=== PATIENT | female | born 1990 | race Caucasian/White ===

== ENCOUNTER → 2021-06-05 | Emergency (ER) | payer OTHER ==
[2021-06-05 21:11] LABS: BASOPHIL 0.5 % (0-2); EOSINOPHIL 1.6 % (0-5); HCT 39.6 % (37.0-47.0); HGB 13.3 g/dl (12.5-16.0); LYMPHOCYTE 22.6 % (15-48); MCHC 33.6 g/dL (32.0-36.0); MCV 89.4 fL (78.0-100.0); MONOCYTE 8.9 % (0-12); MPV 8.7 fL (6.0-9.5); NEUTROPHIL 66.1 % (41-80); NRBC 0; PLT 294 K/uL (150-400); RBC 4.43 M/uL (4.20-5.40); RDW 12.3 % (11.5-14.0); WBC 9.5 K/uL (4.0-10.5)
[2021-06-05 21:12] LABS: BILIRUBIN 1+ mg/dL (NEGATIVE); BLOOD NEGATIVE Ery/uL (NEGATIVE); COLOR YELLOW (YELLOW); GLUCOSE (U) NORMAL (NORMAL); LEUKOCYTES TRACE Leu/uL (NEGATIVE); NITRITE NEGATIVE (NEGATIVE); PROTEIN NEGATIVE (NEGATIVE); SPECIFIC GRAVITY >=1.030 (1.001-1.030)
[2021-06-05 21:13] LABS: CLARITY HAZY (CLEAR)
[2021-06-05 21:14] LABS: AMPHETAMINES NEGATIVE (NEGATIVE); BARBITURATES NEGATIVE (NEGATIVE); ECSTASY (MDMA) NEGATIVE (NEGATIVE); METHADONE NEGATIVE (NEGATIVE); OPIATES NEGATIVE (NEGATIVE); OXYCODONE NEGATIVE (NEGATIVE)
[2021-06-05 21:15] LABS: MARIJUANA (THC) POSITIVE (NEGATIVE)
[2021-06-05 21:17] LABS: BACTERIA 1+; SQUAMOUS EPITHELIAL CELLS 20-50
[2021-06-05 21:18] LABS: MUCOUS TRACE; URINARY RBC RARE
[2021-06-05 21:50] LABS: ACETAMINOPHEN (TYLENOL) < 2.0 ug/mL (10.0-30.0); BUN 6 mg/dL (7-18); BUN/CREAT RATIO (CALC) 10.2 RATIO; CHLORIDE 104 mmol/L (98-107); CO2 (BICARBONATE) 27 mmol/L (21-32); CREATININE 0.59 mg/dL (0.51-0.95); GLUCOSE 93 mg/dL (74-106); POTASSIUM 3.8 mmol/L (3.5-5.1)
== END | disposition home or self-care (01) ==
LOC: FER 19:36
PROVIDERS: Nurse Practitioner Family
DX: R45.851 Suicidal ideations (principal); F17.210 Nicotine dependence, cigarettes, uncomplicated; Z20.822 Contact with and (suspected) exposure to COVID-19
CPT/HCPCS: 36415; 80048; 80305; 81001; 85025; 87088; 99285; G0480; U0002

== ENCOUNTER 2021-10-28 10:11 | Emergency (ER) | payer OTHER ==
[2021-10-28 11:57] LABS: BASOPHIL 0.6 % (0-2); EOSINOPHIL 1.5 % (0-5); HCT 40.8 % (37.0-47.0); HGB 13.5 g/dl (12.5-16.0); LYMPHOCYTE 20.6 % (15-48); MCH 30.1 pg (25.0-31.0); MCHC 33.1 g/dL (32.0-36.0); MCV 90.9 fL (78.0-100.0); MONOCYTE 6.6 % (0-12); MPV 9.3 fL (6.0-9.5); NEUTROPHIL 70.4 % (41-80); NRBC 0; PLT 305 K/uL (150-400); RBC 4.49 M/uL (4.20-5.40); RDW 12.5 % (11.5-14.0); WBC 8.8 K/uL (4.0-10.5)
[2021-10-28 11:59] LABS: BILIRUBIN NEGATIVE (NEGATIVE); BLOOD 1+ Ery/uL (NEGATIVE); CLARITY CLEAR (CLEAR); COLOR YELLOW (YELLOW); GLUCOSE (U) NORMAL (NORMAL); LEUKOCYTES 1+ Leu/uL (NEGATIVE); NITRITE NEGATIVE (NEGATIVE); PROTEIN NEGATIVE (NEGATIVE); SPECIFIC GRAVITY <=1.005 (1.001-1.030); UROBILINOGEN 0.2 mg/dL (0.2-1.0)
[2021-10-28 12:05] LABS: ALBUMIN 3.9 g/dL (3.4-5.0); BILIRUBIN - TOTAL 0.4 mg/dL (0.2-1.0); BUN/CREAT RATIO (CALC) 14.5 RATIO; CREATININE 0.62 mg/dL (0.51-0.95); GLOBULIN (CALCULATION) 3.2 g/dL; MAGNESIUM 1.8 mg/dL (1.8-2.4); POTASSIUM 4.1 mmol/L (3.5-5.1); TOTAL PROTEIN 7.1 g/dL (6.4-8.2)
[2021-10-28 12:17] LABS: BACTERIA TRACE
[2021-10-28 12:18] LABS: AMORPHOUS URATES CRYSTALS TRACE
[2021-10-28] MEDS ORDERED: ONDANSETRON ODT4 MG PO (13:56)
== END 2021-10-28 14:15 | disposition home or self-care (01) ==
LOC: FER 10:11
PROVIDERS: Emergency Medicine
DX: B34.9 Viral infection, unspecified (principal); F17.210 Nicotine dependence, cigarettes, uncomplicated; Z20.822 Contact with and (suspected) exposure to COVID-19
CPT/HCPCS: 36415; 80053; 81001; 83690; 83735; 84145; 84703; 85025; J2405; J7030; U0002